=== PATIENT | female | born 1945 | race Caucasian/White ===

== ENCOUNTER 2020-11-30 12:35 | Observation (INO) ==
[2020-11-30] MEDS ORDERED: Clindamycin 900 MG/50 ML 900 MG/50 ML IV.SOLN IVPB ONE (12:55)
[2020-11-30] MEDS ORDERED: Vancomycin 1,000 MG VIAL ONE (12:57)
[2020-11-30] MEDS ORDERED: Ethanol\\Acetic Acid\\Na Ace\\Ben 1,000 ML IRRIG.SOLN IR ONE (12:57)
[2020-11-30] MEDS ORDERED: Ringers Solution, Lactated 1,000 ML IVC SCH (13:00)
[2020-11-30] MEDS ORDERED: *HR* HYDROmorphone (PF) 1 MG/ML SYRINGE IVP PRN (13:07)
[2020-11-30] MEDS ORDERED: Acetaminophen IV 1,000 MG/100 ML BAG IVPB ONE (13:07)
[2020-11-30] MEDS ORDERED: *HR* OxyCODONE Immed Rel 5 MG TABLET PO PRN ×2 (13:07→16:57)
[2020-11-30] MEDS ORDERED: *HR* HYDROmorphone 2 MG TABLET PO PRN (13:07)
[2020-11-30] MEDS ORDERED: *HR* Labetalol 20 MG/4 ML SYRINGE IVP PRN (13:07)
[2020-11-30] MEDS ORDERED: Famotidine 20 MG/2 ML VIAL IVP ONE (13:07)
[2020-11-30] MEDS ORDERED: ROPIVACAINE/PF/NS 0.25% 1 EACH SYRINGE INTRAART ONE (13:10)
[2020-11-30] MEDS ORDERED: *HR* Midazolam HCl 2 MG/2 ML VIAL ONE (13:11)
[2020-11-30] MEDS ORDERED: Scopolamine Patch 1.5 MG PATCH.TD72 TD ONE (13:19)
[2020-11-30] MEDS ORDERED: Ondansetron 4 MG/2 ML VIAL ONE (13:49)
[2020-11-30] MEDS ORDERED: *HR* Propofol 200 MG/20 ML VIAL IVP ONE (13:51)
[2020-11-30] MEDS ORDERED: Tranexamic Acid 1,000 MG/10 ML VIAL ONE (14:11)
[2020-11-30] MEDS ORDERED: *HR* FentaNYL (PF) 100 MCG/2 ML VIAL ONE (14:11)
[2020-11-30] MEDS ORDERED: Lidocaine -MPF 2% 2 ML VIAL ONE (14:21)
[2020-11-30] MEDS ORDERED: TOTAL JOINT MIXTURE (100ML) INTRAART ONE (14:30)
[2020-11-30] MEDS ORDERED: Povidone-Iodine 45 ML, Sodium Chloride IRRigation 1,000 ML IR ONE (14:30)
[2020-11-30 16:16] LABS: Hematocrit 38.8 % (35.3-44.9); Hemoglobin 12.6 g/dL (11.5-15.4)
[2020-11-30] MEDS ORDERED: *HR* Dextrose 50 % in Water (Vial) 50 ML VIAL IVP PRN (16:57)
[2020-11-30] MEDS ORDERED: D5% in Water 1,000 ML IVC PRN (16:57)
[2020-11-30] MEDS ORDERED: Sennosides 8.6 MG TABLET PO PRN (16:57)
[2020-11-30] MEDS ORDERED: MOM Conc 10 ML UD.LIQ PO PRN (16:57)
[2020-11-30] MEDS ORDERED: *HR* Promethazine 25 MG/ML VIAL IM PRN (16:57)
[2020-11-30] MEDS ORDERED: Ondansetron 4 MG/2 ML VIAL IVP PRN (16:57)
[2020-11-30] MEDS ORDERED: Naloxone 0.4 MG/ML INJ IVP PRN (16:57)
[2020-11-30] MEDS ORDERED: Dextrose Gel 15 GM/37.5 ML TUBE PO PRN ×2 (16:57)
[2020-11-30] MEDS: Ascorbic Acid 500 MG TABLET PO SCH (17:29)
[2020-11-30] MEDS: Clindamycin 900 MG/50 ML 900 MG/50 ML IV.SOLN IVPB SCH (17:30)
[2020-11-30] MEDS: HYDROcodone BIT/Homatropine 5 MG TABLET PO PRN (20:25)
[2020-11-30] MEDS: Insulin LISPRO 300 UNITS/3 ML VIAL SUBQ SCH ×2 (20:37→21:40)
[2020-12-01] MEDS: Clindamycin 900 MG/50 ML 900 MG/50 ML IV.SOLN IVPB SCH (00:10)
[2020-12-01] MEDS: HYDROcodone BIT/Homatropine 5 MG TABLET PO PRN (04:13)
[2020-12-01 06:55] LABS: Red Cell Distribution Width 13.2 % (11.5-14.5)
[2020-12-01 06:56] LABS: Basophils % 0.5 %; Eosinophils % 0.6 %
[2020-12-01 06:58] LABS: Basophils # 0.1 K/mcL (0.0-0.2); Eosinophils # 0.1 K/mcL (0.0-0.6); Hemoglobin 11.3 g/dL (11.5-15.4); Immature Granulocytes % 0.3 % (0-4); Lymphocytes # 1.3 K/mcL (0.6-4.6); Lymphocytes % 10.2 %; Mean Corpuscular HGB Conc 33.2 g/dL (31.6-35.5); Mean Corpuscular Hemoglobin 30.5 pg (28.0-33.3); Mean Corpuscular Volume 91.9 fL (83.0-100.0); Mean Platelet Volume 13.1 fL (9.4-12.4); Neutrophils # 10.1 K/mcL (1.6-8.9); Platelet Count 118 K/mcL (140-400); Segmented Neutrophils % 80.4 %; White Blood Count 12.5 K/mcL (4.3-11.1)
[2020-12-01 07:03] LABS: BUN/Creatinine Ratio 22 (6-26); Blood Urea Nitrogen 10 mg/dL (8-23); Calcium 8.5 mg/dL (8.6-10.3); Carbon Dioxide 23 mEq/L (23-29); Chloride 103 mEq/L (98-107); Glucose 140 mg/dL (70-105); Osmolality,Calculated 279 (280-300); Sodium 134 mEq/L (136-145); eGFR For African Americans > 60 (> 60); eGFR For Non-African Americans > 60 (> 60)
[2020-12-01] MEDS: Insulin LISPRO 300 UNITS/3 ML VIAL SUBQ SCH ×4 (09:07→20:04)
[2020-12-01] MEDS: Ascorbic Acid 500 MG TABLET PO SCH ×2 (09:08→16:40)
[2020-12-01] MEDS: Multivit/Ca/Min/Fe/FA 1 TAB TABLET PO SCH (09:09)
[2020-12-01] MEDS: Metoprolol XL (24 HR) Succ 50 MG TAB.ER.24H PO SCH (09:09)
[2020-12-01] MEDS: Aspirin 81 MG TAB.CHEW PO SCH (09:09)
[2020-12-01] MEDS: amLODIPine 5 MG TABLET PO SCH (09:09)
[2020-12-01] MEDS: lisinopriL 20 MG TABLET PO SCH (09:09)
[2020-12-01] MEDS: Anastrozole 1 MG TABLET PO SCH (09:11)
[2020-12-01] MEDS ORDERED: Aspirin Enteric Coated 81 MG Tablet PO SCH (12:54)
[2020-12-02 01:46] LABS: Basophils # 0.1 K/mcL (0.0-0.2); Basophils % 0.5 %; Eosinophils # 0.4 K/mcL (0.0-0.6); Eosinophils % 3.1 %; Hematocrit 33.5 % (35.3-44.9); Hemoglobin 11.1 g/dL (11.5-15.4); Immature Granulocytes % 0.3 % (0-4); Lymphocytes # 1.1 K/mcL (0.6-4.6); Lymphocytes % 8.3 %; Mean Corpuscular HGB Conc 33.1 g/dL (31.6-35.5); Mean Corpuscular Volume 93.6 fL (83.0-100.0); Mean Platelet Volume 12.5 fL (9.4-12.4); Monocytes # 1.3 K/mcL (0.0-1.3); Monocytes % 9.5 %; Neutrophils # 10.3 K/mcL (1.6-8.9); Platelet Count 131 K/mcL (140-400); Red Blood Count 3.58 M/mcL (3.82-4.97); Red Cell Distribution Width 13.2 % (11.5-14.5); Segmented Neutrophils % 78.3 %; White Blood Count 13.1 K/mcL (4.3-11.1)
[2020-12-02 02:03] LABS: BUN/Creatinine Ratio 19 (6-26); Blood Urea Nitrogen 7 mg/dL (8-23); Calcium 8.6 mg/dL (8.6-10.3); Carbon Dioxide 25 mEq/L (23-29); Chloride 99 mEq/L (98-107); Glucose 141 mg/dL (70-105); Osmolality,Calculated 274 (280-300); Potassium 3.6 mEq/L (3.5-5.1); Sodium 132 mEq/L (136-145); eGFR For African Americans > 60 (> 60); eGFR For Non-African Americans > 60 (> 60)
[2020-12-02] MEDS ORDERED: Ketorolac 30 MG/ML VIAL IVP PRN (06:46)
[2020-12-02] MEDS: Insulin LISPRO 300 UNITS/3 ML VIAL SUBQ SCH ×3 (07:24→17:40)
[2020-12-02] MEDS: Multivit/Ca/Min/Fe/FA 1 TAB TABLET PO SCH (07:26)
[2020-12-02] MEDS: Anastrozole 1 MG TABLET PO SCH (07:26)
[2020-12-02] MEDS: amLODIPine 5 MG TABLET PO SCH (07:27)
[2020-12-02] MEDS: Aspirin 81 MG TAB.CHEW PO SCH (07:27)
[2020-12-02] MEDS: Ascorbic Acid 500 MG TABLET PO SCH ×2 (07:27→17:40)
[2020-12-02] MEDS: lisinopriL 20 MG TABLET PO SCH (07:27)
[2020-12-02] MEDS: Metoprolol XL (24 HR) Succ 50 MG TAB.ER.24H PO SCH (07:27)
[2020-12-02] MEDS: Ringers Solution, Lactated 1,000 ML IVC SCH ×2 (11:50→13:15)
[2020-12-02 16:48] VITALS: BP 128/76
== END 2020-12-02 18:34 | disposition home or self-care (01) ==
LOC: SAMDAY 12:35 → 3NENU 12:35
PROVIDERS: ADMIT Orthopaedic Surgery; ATTEND Orthopaedic Surgery